=== PATIENT | male | born 1960 | race Caucasian/White ===

== ENCOUNTER 2021-04-26 09:58 | Outpatient (CLI) | payer OTHER, SELFPAY ==
--- NOTE | ~2021-04-26 | US_ITS ---
EXAMINATION: US abdomen complete DATE: 04/26/2021 10:55 INDICATION: Other secondary thrombocytopenia TECHNIQUE: Multiple grayscale and Doppler ultrasound images of the abdomen were obtained. COMPARISON: None available FINDINGS: Bowel gas obscures visualization of the pancreas. The liver is normal with normal echogenic ity and echotexture. No surface nodularity. Normal hepatopetal flow in the main portal vein. The gall bladder is normal with no abnormal wall thickening, pericholecystic fluid or stones. The normal commo n bile duct measures 3 mm. There was no sonographic Calderon sign. The visualized portions of the aorta and inferior vena cava are normal. The right kidney measures 10.1 x 6.1 x 5.4 cm. The left kidney measures 10.3 x 3.9 x 6.0 cm. The kidn eys demonstrate normal parenchymal echogenicity. There is no hydronephrosis. The mildly enlarged sple en measures 14.6 cm. IMPRESSION: 1. Mild splenomegaly. Reviewed, dictated and finalized at location A. IMPRESSION: 1. Mild splenomegaly.
== END 2021-04-26 09:59 | disposition home or self-care (01) ==
LOC: ANHIMG 10:06
PROVIDERS: PCP Nurse Practitioner Family; Visit Provider Internal Medicine Hematology & Oncology
DX: D69.59 Other secondary thrombocytopenia (principal); R16.1 Splenomegaly, not elsewhere classified
CPT/HCPCS: 76700